=== PATIENT | female | born 1945 | race Caucasian/White ===

== ENCOUNTER → 2017-09-23 | Outpatient (CLI) | payer MEDICARE, OTHER ==
[~2017-09-23] MED LIST: ALBU90OI6 INH; ASPI325EC PO; CAL MAG D PO; CALCAVITD PO; CLARITIN-D 121 EACH PO; ETOD400 PO; ETOD500 PO; EZET10 PO; FISH1000 PO; FLAX PO; FLUO20 PO; HYDCHL12.5 PO; HYDCHL25 PO; IRON PO; LORA10ER PO; METO25ER PO; Prozac20 MG PO; Super B Comple150 MG PO; TRIA55OI; TURMERIC PO; VITAMIN B COMPLEX PO; [UNRECOGNIZED DRUG - OTHER] PO
== END ==
LOC: LAB SHORT 18:00
DX: R30.0 Dysuria (principal)
CPT/HCPCS: 87077; 87086; 87186

== ENCOUNTER 2018-02-22 06:05 | Day surgery (SDC) | payer MEDICARE, OTHER ==
[~2018-02-22] VITALS: Ht 160 cm; Wt 94.4 kg
[~2018-02-22 06:05] MED LIST changes: -CLARITIN-D 121 EACH PO
[2018-02-22] MEDS ORDERED: CLARITIN-D 121 EACH PO (07:37)
== END 2018-02-22 09:01 | disposition home or self-care (01) ==
LOC: ORSCSDS 06:05
PROVIDERS: Ophthalmology
PROC: 08RK3JZ Replacement of Left Lens with Synthetic Substitute, Percutaneous Approach (ICD-10-PCS; principal; 2018-02-22 08:30)
DX: H25.12 Age-related nuclear cataract, left eye (principal); I10 Essential (primary) hypertension; Z79.899 Other long term (current) drug therapy
CPT/HCPCS: J2250; J3301; J7120; V2632

== ENCOUNTER → 2018-03-22 | Outpatient (CLI) | payer MEDICARE, OTHER ==
[~2018-03-22] MED LIST changes: +CLARITIN-D 121 EACH PO
[2018-03-23 14:29] LABS: Source, Urine Clean Catch
[2018-03-23 16:41] LABS: Appearance, Urine Hazy (Clear); Blood, Urine Neg (Neg); Color, Urine Yellow (P-Yellow); Glucose Qualitative, Urine Neg (Neg); Ketones, Urine Neg (Neg); Leukocyte Esterase, Urine 3+ (Neg); Nitrite, Urine Pos (Neg); Protein, Urine Neg (Neg); Urobilinogen, Urine NORM (Normal); pH, Urine 6.5 (5.0-8.0)
[2018-03-23 16:53] LABS: Bilirubin, Urine 1+ (Neg)
[2018-03-23 16:54] LABS: Bacteria Mod /hpf; Red Blood Cells, Urine 0-2 /hpf (0-2); Squamous Epithelial Cells Rare /hpf (Few); White Blood Cells, Urine 25-50 /hpf (0-5)
== END ==
LOC: LAB SHORT 19:49 → LAB 19:49
PROVIDERS: Nurse Practitioner Family
DX: N39.0 Urinary tract infection, site not specified (principal); R35.0 Frequency of micturition
CPT/HCPCS: 81001

== ENCOUNTER 2018-10-05 05:52 | Day surgery (SDC) | payer MEDICARE, OTHER ==
[~2018-10-05] VITALS: Ht 160 cm; Wt 93.9 kg
[~2018-10-05 05:52] MED LIST changes: +FISH, FLAX, BORAGE PO; +IRON150C PO
--- NOTE | 2018-10-05 06:51 | NUR ---
Ambulatory in Day Surgery History, Chart, Medications and Allergies reviewed before start of procedure. Lungs clear T/O to Auscultation. Patient confirms NPO status and agrees with scheduled surgery. Pre-Op teaching done. Pt verbalizes understanding.
--- NOTE | 2018-10-05 14:20 | NUR ---
OTHER PUNEET QIU GIVEN REPORT AND IS ASSUMING CARE OF PT AT THIS TIME.
--- NOTE | 2018-10-05 15:35 | NUR ---
THIS RN GIVEN UPDATE ON PT AND IS ASSUMING CARE OF PT AT THIS TIME.
--- NOTE | 2018-10-05 18:01 | NUR ---
SHIFT SUMMARY PT EATING AND DRINKING. PT VOIDING. PT HAD PROCEDURE TODAY. UP TO CHAIR. VSS. PT USING CALL LIGHT APPR. TEDS/PAS/POLAR PAC IN PLACE. BEEN ASSISTED WITH ADL'S PRN.
[2018-10-06 04:47] LABS: BASOPHILS ABSOLUTE AUTO 0.03 K/mm3 (0.00-0.23); BASOPHILS PERCENT AUTO 0 % (0-2); EOSINOPHILS ABSOLUTE AUTO 0.03 K/mm3 (0.00-0.68); EOSINOPHILS PERCENT AUTO 0 % (0-6); Hematocrit 35.2 % (33.0-51.0); Hemoglobin 11.7 g/dL (11.5-16.0); IMMATURE GRAN ABSOLUTE AUTO 0.09 K/mm3 (0.00-0.10); IMMATURE GRAN PERCENT AUTO 1 % (0-1); LYMPHOCYTES ABSOLUTE AUTO 1.64 K/mm3 (0.84-5.20); LYMPHOCYTES PERCENT AUTO 9 % (21-46); MONOCYTES ABSOLUTE AUTO 1.92 K/mm3 (0.16-1.47); MONOCYTES PERCENT AUTO 11 % (4-13); Mean Corpuscular HGB 29.2 pg (26.0-34.0); Mean Corpuscular HGB Conc 33.2 g/dL (31.5-36.5); Mean Corpuscular Volume 88 fL (80-100); Mean Platelet Volume 9.4 fL (9.1-12.4); NEUTROPHILS PERCENT AUTO 79 % (41-73); Platelet Count 218 K/mm3 (150-400); RDW Coefficient Variation 12.4 % (11.7-14.2); RDW Standard Deviation 39.8 fL (35.1-46.3); Red Blood Cell Count 4.01 M/mm3 (3.80-5.20); White Blood Cell Count 18.01 K/mm3 (4.00-11.30)
[2018-10-06 05:06] LABS: Anion Gap 8 mmol/L (6-16); Blood Urea Nitrogen 19 mg/dL (8-24); Bun/Creatinine Ratio 22.8 (12.0-20.0); CO2, Blood 27 mmol/L (21-32); Calcium, Blood 8.6 mg/dL (8.5-10.1); Chloride, Blood 105 mmol/L (98-108); Creatinine, Blood 0.83 mg/dL (0.40-1.00); Glomerular Filtration Rate >60 (60-); Glucose, Blood 112 mg/dL (70-99); Sodium, Blood 140 mmol/L (136-145)
--- NOTE | 2018-10-06 08:28 | NUR ---
SHIFT SUMMARY: PT HAS DONE WELL THIS SHIFT. PAIN MANAGED WITH OXY PER EMAR. AMBULATING AND OOB SEVERAL TIMES W/FWW AND GAITBELT. ROSENDO DIET. DENIES N/V. DRINKING PO FLUIDS AND VOIDING WELL. SALINE LOCKED. SCDS AND ALEXANDER HOSE IN PLACE. POLAR PACK ON. NO CONCERNS AT THIS TIME.
[2018-10-06] MEDS ORDERED: ASPI325EC PO (13:32)
[2018-10-06] MEDS ORDERED: Percocet 5-3251 EACH PO (13:33)
--- NOTE | 2018-10-06 14:00 | NUR ---
PATIENT D/C'D AT THIS TIME WITH DAUGHTER. PATIENT STATES UNDERSTANDING OF MEDS, WOUND CARE, ACTIVITY, OP PT, ETC. PATIENT STATES PO PAIN MED CONTROLLING PAIN. TOLERATING PO. VOIDING. R KNEE DRESSING C,D,I. NO C/O AT THIS TIME.
--- NOTE | 2018-10-06 14:00 | NUR ---
PATIENT D/C'D OWN IV, SITE CLEAR.
== END 2018-10-06 14:05 | disposition home or self-care (01) ==
LOC: ORSCMMR 05:52 → ORD 07:30 → ORSCMMR 07:30 → SURS 10:50 → ORSCMMR 10-06 14:05
PROVIDERS: Orthopaedic Surgery
PROC: 0SRC0JA Replacement of Right Knee Joint with Synthetic Substitute, Uncemented, Open Approach (ICD-10-PCS; principal; 2018-10-05 07:30)
DX: M17.11 Unilateral primary osteoarthritis, right knee (principal); I10 Essential (primary) hypertension; J45.909 Unspecified asthma, uncomplicated; E66.01 Morbid (severe) obesity due to excess calories; Z68.36 Body mass index [BMI] 36.0-36.9, adult; Z79.899 Other long term (current) drug therapy
CPT/HCPCS: 36415; 73560-RT; 80048; 85025; 86850; 86900; 86901; 88300; 97110; 97116; 97161; 97530; C1776; J0171; J0690; J0735; J1100; J1885; J2250; J2370; J2405; J2795; J3010; J7120

== ENCOUNTER 2019-01-21 19:33 | Emergency (ER) | payer MEDICARE, OTHER ==
[~2019-01-21] VITALS: Ht 162.6 cm; Wt 76.2 kg
[~2019-01-21 19:33] MED LIST changes: -CAL MAG D PO; +CAL MAG ZINC +1 EACH PO; -ETOD400 PO; +Ferrous Sulfat325 M2 PO; -IRON PO; +Percocet 5-3251 EACH PO
[2019-01-21 20:10] LABS: BASOPHILS ABSOLUTE AUTO 0.04 K/mm3 (0.00-0.23); BASOPHILS PERCENT AUTO 0 % (0-2); EOSINOPHILS ABSOLUTE AUTO 0.27 K/mm3 (0.00-0.68); EOSINOPHILS PERCENT AUTO 3 % (0-6); Hematocrit 41.1 % (33.0-51.0); Hemoglobin 13.7 g/dL (11.5-16.0); IMMATURE GRAN ABSOLUTE AUTO 0.02 K/mm3 (0.00-0.10); IMMATURE GRAN PERCENT AUTO 0 % (0-1); LYMPHOCYTES ABSOLUTE AUTO 1.42 K/mm3 (0.84-5.20); LYMPHOCYTES PERCENT AUTO 15 % (21-46); MONOCYTES ABSOLUTE AUTO 0.65 K/mm3 (0.16-1.47); MONOCYTES PERCENT AUTO 7 % (4-13); Mean Corpuscular HGB Conc 33.3 g/dL (31.5-36.5); Mean Corpuscular Volume 87 fL (80-100); Mean Platelet Volume 9.2 fL (9.1-12.4); NEUTROPHILS ABSOLUTE AUTO 7.16 K/mm3 (1.96-9.15); NEUTROPHILS PERCENT AUTO 75 % (41-73); Platelet Count 313 K/mm3 (150-400); RDW Coefficient Variation 12.6 % (11.7-14.2); RDW Standard Deviation 40.3 fL (35.1-46.3); Red Blood Cell Count 4.72 M/mm3 (3.80-5.20); White Blood Cell Count 9.56 K/mm3 (4.00-11.30)
[2019-01-21 20:27] LABS: Alanine Aminotransfer (ALT/SGP 20 U/L (12-78); Albumin, Blood 3.4 g/dL (3.4-5.0); Albumin/Globulin Ratio 0.9 (0.8-1.8); Alk Phos 118 U/L (50-136); Anion Gap 4 mmol/L (6-16); Aspartate Aminotrans (AST/SGOT 16 U/L (12-37); Bilirubin, Total 0.4 mg/dL (0.1-1.0); Blood Urea Nitrogen 17 mg/dL (8-24); Bun/Creatinine Ratio 23.3 (12.0-20.0); CO2, Blood 30 mmol/L (21-32); Calcium, Blood 8.8 mg/dL (8.5-10.1); Chloride, Blood 105 mmol/L (98-108); Creatinine, Blood 0.73 mg/dL (0.40-1.00); Globulin, Blood 3.7 g/dL (2.2-4.0); Glomerular Filtration Rate >60 (60-); Glucose, Blood 129 mg/dL (70-99); Potassium, Blood 3.2 mmol/L (3.5-5.5); Sodium, Blood 139 mmol/L (136-145); Total Protein, Blood 7.1 g/dL (6.4-8.2); Troponin I <0.015 ng/mL (0.000-0.040)
[2019-01-21] MEDS ORDERED: Omeprazole20 M1 PO (21:57)
== END 2019-01-21 22:26 | disposition home or self-care (01) ==
LOC: ER 19:33
PROVIDERS: Physician Assistant
DX: K29.70 Gastritis, unspecified, without bleeding (principal); K21.9 Gastro-esophageal reflux disease without esophagitis; Z79.899 Other long term (current) drug therapy; I10 Essential (primary) hypertension; E78.00 Pure hypercholesterolemia, unspecified
CPT/HCPCS: 36415; 71046; 80053; 83690; 84484; 85025; 93005; 93010; 96361; 96374; 96375; 99284-25; A9270; C9113; J2405; J7030

== ENCOUNTER 2019-05-29 16:13 | Inpatient (IN) | payer MEDICARE, OTHER ==
[~2019-05-29] VITALS: Ht 160 cm; Wt 86.5 kg
[~2019-05-29 16:13] MED LIST changes: +Omeprazole20 M1 PO
[2019-05-31] MEDS ORDERED: LORATADINE D PO (10:57)
[2019-05-31] MEDS ORDERED: ALBU90OI INH (11:00)
--- NOTE | 2019-05-31 11:13 | NUR ---
PT ADMITTED TO [facility]. AGREES WITH PLANNED SURGERYL. LUNG SOUNDS CLEAR.
--- NOTE | 2019-05-31 11:36 | NUR ---
PT UP TO BATHROOM TO VOID. REPORT GIVEN TO SUSIE HAMILTON RN.
--- NOTE | 2019-05-31 15:03 | NUR ---
INTO PACU VSS RECIEVED REPORT. PATIENT ENCOURAGED TO DB AND PLACED ON FACE TENT. DRESSING CDI PATIENT FALLS ASLEEP AFTER TALKING WITH RN.
--- NOTE | 2019-05-31 15:33 | NUR ---
CALL TO SURGICAL FLOOR RN TO CALL AFTER GETTING REPORT FROM YUKO BOOKER TO GET REPORT ON THIS PATIENT. PATIENT CHANGED TO STEP STATUS AT THIS TIME
--- NOTE | 2019-05-31 17:54 | NUR ---
SHIFT SUMMARY: DALLIN HAD AN ELECTIVE RIGHT SHOULDER ARTHROPLASTY. SHE IS A&O X4. SHE IS TOLERATING PO INTAKE WELL. SHE HAD A BLOCK AND DENIES PAIN AT THIS TIME, SENSATION INTACT TO LIGHT TOUCH. LYING IN BED WITH CALL LIGHT IN REACH. SHE HAS THE HX OF ASTHMA, REACTIVE AIRWAY DISEASE, BRONCHITIS, HTN, HYPERGLYCEMIA, ANEMIA, AND CHRONIC DEPRESSION. SHE DID HAVE A PROPHYLACTIC BILATERAL MASTECTOMY DUE TO FAMILY HISTORY. UPPER DENTURES IN CUP NEXT TO SINK IN ROOM. O2 AT 2 L VIA NC DUE TO DESATURATION TO 89% WHILE SLEEPING. EBL 400 DURING SURGERY. VSS.
[2019-06-01 04:24] LABS: BASOPHILS ABSOLUTE AUTO 0.02 K/mm3 (0.00-0.23); BASOPHILS PERCENT AUTO 0 % (0-2); EOSINOPHILS PERCENT AUTO 0 % (0-6); Hematocrit 33.7 % (33.0-51.0); Hemoglobin 11.2 g/dL (11.5-16.0); IMMATURE GRAN ABSOLUTE AUTO 0.05 K/mm3 (0.00-0.10); IMMATURE GRAN PERCENT AUTO 0 % (0-1); LYMPHOCYTES ABSOLUTE AUTO 1.12 K/mm3 (0.84-5.20); LYMPHOCYTES PERCENT AUTO 7 % (21-46); MONOCYTES ABSOLUTE AUTO 0.93 K/mm3 (0.16-1.47); MONOCYTES PERCENT AUTO 6 % (4-13); Mean Corpuscular HGB 28.5 pg (26.0-34.0); Mean Corpuscular HGB Conc 33.2 g/dL (31.5-36.5); Mean Corpuscular Volume 86 fL (80-100); Mean Platelet Volume 9.5 fL (9.1-12.4); NEUTROPHILS ABSOLUTE AUTO 14.08 K/mm3 (1.96-9.15); NEUTROPHILS PERCENT AUTO 87 % (41-73); Platelet Count 242 K/mm3 (150-400); RDW Coefficient Variation 12.2 % (11.7-14.2); RDW Standard Deviation 38.5 fL (35.1-46.3); Red Blood Cell Count 3.93 M/mm3 (3.80-5.20)
[2019-06-01 04:43] LABS: Anion Gap 7 mmol/L (6-16); Blood Urea Nitrogen 17 mg/dL (8-24); Bun/Creatinine Ratio 20.1 (12.0-20.0); CO2, Blood 26 mmol/L (21-32); Calcium, Blood 8.5 mg/dL (8.5-10.1); Chloride, Blood 101 mmol/L (98-108); Creatinine, Blood 0.85 mg/dL (0.40-1.00); Glomerular Filtration Rate >60 (60-); Glucose, Blood 116 mg/dL (70-99); Potassium, Blood 4.1 mmol/L (3.5-5.5); Sodium, Blood 134 mmol/L (136-145)
--- NOTE | 2019-06-01 05:56 | NUR ---
PATIENT A/Ox4, VSS. Ambulating to bathroom. Voiding freely. Patient states "arm is still numb but is beginning to have feeling in the palm of her hand" medicated as ordered. Resting in Chair. Call light within reach
[2019-06-01] MEDS ORDERED: Percocet 5-3251 EACH PO (08:42)
[2019-06-01] MEDS ORDERED: Aspir 8181 MG PO (08:43)
--- NOTE | 2019-06-01 09:49 | NUR ---
THERAPY: pt working with pt/ot at this time. plan to dc home later this afternoon. continues to deny pain.
--- NOTE | 2019-06-01 12:55 | NUR ---
06/01/19 1255 Rhonda Penaloza VERIFICATIONS: EDIT CHART.
--- NOTE | 2019-06-01 14:39 | NUR ---
DISCHARGE: PT DC TO HOME AT THIS TIME WITH DAUGHTER. VERBALIZED UNDERSTANDING OF INSTRUCTIONS, FOLLOW UP, PROBLEMS TO REPORT AND MEDICATIONS. SCRIPTS GIVEN. PT LEFT AMBULATORY TO CAR WITH BELONGINGS.
== END 2019-06-01 14:24 | disposition home or self-care (01) | DRG 483 ==
LOC: SURS 05-31 10:35 → PRE IP 05-31 11:45 → SURS 05-31 16:20
PROVIDERS: ADMIT Orthopaedic Surgery
PROC: 0RRJ0JZ Replacement of Right Shoulder Joint with Synthetic Substitute, Open Approach (ICD-10-PCS; principal; 2019-05-31 11:45)
DX: M19.011 Primary osteoarthritis, right shoulder (principal); F32.9 Major depressive disorder, single episode, unspecified; J45.909 Unspecified asthma, uncomplicated; E78.5 Hyperlipidemia, unspecified; I10 Essential (primary) hypertension; Z79.899 Other long term (current) drug therapy
CPT/HCPCS: 36415; 73030; 80048; 85025; 86850; 86900; 86901; 88300; 97162; 97165; 97530; 97535; C1776; J0171; J0690; J0735; J1100; J1885; J2370; J2405; J2704; J2795; J3010; J7120

== ENCOUNTER 2019-11-02 10:19 | Day surgery (SDC) | payer MEDICARE, OTHER ==
[~2019-11-02] VITALS: Ht 154.9 cm; Wt 85.1 kg
[~2019-11-02 10:19] MED LIST changes: +ALBU90OI INH; +Aspir 8181 MG PO; +LORATADINE D PO
== END 2019-11-02 12:29 | disposition home or self-care (01) ==
LOC: ORSCSDS 10:19
PROVIDERS: Internal Medicine Gastroenterology
PROC: 0DJD8ZZ Inspection of Lower Intestinal Tract, Via Natural or Artificial Opening Endoscopic (ICD-10-PCS; principal; 2019-11-02 11:45)
DX: Z12.11 Encounter for screening for malignant neoplasm of colon (principal); Z86.010 Personal history of colon polyps; K57.30 Diverticulosis of large intestine without perforation or abscess without bleeding; Z80.0 Family history of malignant neoplasm of digestive organs; I10 Essential (primary) hypertension; K21.9 Gastro-esophageal reflux disease without esophagitis; G47.30 Sleep apnea, unspecified; F32.9 Major depressive disorder, single episode, unspecified; J45.909 Unspecified asthma, uncomplicated; E78.5 Hyperlipidemia, unspecified; Z87.891 Personal history of nicotine dependence; Z79.899 Other long term (current) drug therapy
CPT/HCPCS: J2704; J7120

== ENCOUNTER → 2021-04-02 | Outpatient (CLI) | payer MEDICARE, OTHER | END | disposition home or self-care (01) | LOC: LAB 12:14 → LAB SHORT 12:14 | DX: C44.712 Basal cell carcinoma of skin of right lower limb, including hip (principal); C44.719 Basal cell carcinoma of skin of left lower limb, including hip; L82.1 Other seborrheic keratosis; C44.519 Basal cell carcinoma of skin of other part of trunk | CPT/HCPCS: 88305 ==

== ENCOUNTER → 2021-05-13 | Outpatient (CLI) | payer MEDICARE, OTHER | END | disposition home or self-care (01) | LOC: LAB SHORT 14:47 | DX: C44.719 Basal cell carcinoma of skin of left lower limb, including hip (principal) | CPT/HCPCS: 88305 ==

== ENCOUNTER → 2021-06-30 | Outpatient (CLI) | payer MEDICARE, OTHER | LOC: LAB 15:07 → LAB SHORT 15:07 | DX: C44.712 Basal cell carcinoma of skin of right lower limb, including hip (principal) | CPT/HCPCS: 88305 ==

== ENCOUNTER → 2021-09-17 | Outpatient (CLI) | payer MEDICARE, OTHER | END | disposition home or self-care (01) | LOC: LAB SHORT 11:23 | DX: C44.519 Basal cell carcinoma of skin of other part of trunk (principal) | CPT/HCPCS: 88305 ==

== ENCOUNTER → 2021-09-28 | Outpatient (CLI) | payer MEDICARE, OTHER | END | disposition home or self-care (01) | LOC: LAB SHORT 12:11 | DX: C44.519 Basal cell carcinoma of skin of other part of trunk (principal) | CPT/HCPCS: 88305 ==

== ENCOUNTER → 2022-06-10 | Outpatient (CLI) | payer MEDICARE, OTHER | END | disposition home or self-care (01) | LOC: PLD 12:35 → LAB SHORT 12:35 | DX: C44.41 Basal cell carcinoma of skin of scalp and neck (principal) | CPT/HCPCS: 88305 ==

== ENCOUNTER → 2022-12-29 | Outpatient (CLI) | payer MEDICARE, OTHER | END | disposition home or self-care (01) | LOC: PLD 11:25 → LAB SHORT 11:25 | DX: C44.319 Basal cell carcinoma of skin of other parts of face (principal) | CPT/HCPCS: 88305 ==

== ENCOUNTER 2023-04-27 13:59 | Day surgery (SDC) | payer MEDICARE, OTHER ==
[~2023-04-27] VITALS: Ht 157.5 cm; Wt 97.1 kg
[2023-04-27] MEDS ORDERED: GUAI200 (14:11)
[2023-04-27 16:01] VITALS: BP 133/79
--- NOTE | 2023-04-27 16:04 | NUR ---
04/27/23 1604 Anand Son IV REMOVED INTACT. SITE WNL.
== END 2023-04-27 16:05 | disposition home or self-care (01) ==
LOC: ORSCSDS 13:59
PROVIDERS: Internal Medicine Gastroenterology
PROC: 0DBE8ZX Excision of Large Intestine, Via Natural or Artificial Opening Endoscopic, Diagnostic (ICD-10-PCS; principal; 2023-04-27 15:00)
DX: R19.4 Change in bowel habit (principal); Z86.010 Personal history of colon polyps; K57.30 Diverticulosis of large intestine without perforation or abscess without bleeding; Z79.899 Other long term (current) drug therapy
CPT/HCPCS: 88305; J0461; J2001; J2405; J2704; J7120; Q9968

== ENCOUNTER → 2023-07-29 | Outpatient (CLI) | payer MEDICARE, OTHER ==
[~2023-07-29] MED LIST changes: +ELIQUIS5 M2 PO; +GUAI200; +METO50ER PO
[2023-07-29 17:41] LABS: Adenovirus F 40/41 Not Detected (NOT DETECT); Astrovirus Not Detected (NOT DETECT); Campylobacter Sp Not Detected (NOT DETECT); Cryptosporidium Not Detected (NOT DETECT); Cyclospora Cayetanensis Not Detected (NOT DETECT); E. Coli O157 Not Detected (NOT DETECT); Entamoeba Histolytica Not Detected (NOT DETECT); Enteroaggregative E. coli-EAEC Not Detected (NOT DETECT); Enteropathogenic E. coli-EPEC Not Detected (NOT DETECT); Enterotoxigenic E. coli-ETEC Not Detected (NOT DETECT); Giardia Lamblia Not Detected (NOT DETECT); Norovirus GI/GII Not Detected (NOT DETECT); Plesiomonas Shigelloides Not Detected (NOT DETECT); Rotavirus A Not Detected (NOT DETECT); Salmonella Sp Not Detected (NOT DETECT); Sapovirus Not Detected (NOT DETECT); Shiga Toxin-prod E. coli-STEC Not Detected (NOT DETECT); Shigella/Enteroin E. coli-EIEC Not Detected (NOT DETECT); Vibrio Cholerae Not Detected (NOT DETECT); Vibrio Sp Not Detected (NOT DETECT); Yersinia Enterocolitica Not Detected (NOT DETECT)
== END | disposition home or self-care (01) ==
LOC: LAB SHORT 12:45 → LAB 12:45 → EDSTATUS 07-27 10:10 → LAB FUT 07-27 10:10
PROVIDERS: Nurse Practitioner Family
DX: K52.9 Noninfective gastroenteritis and colitis, unspecified (principal)
CPT/HCPCS: 87507

== ENCOUNTER 2023-10-02 11:23 | Emergency (ER) | payer MEDICARE, OTHER ==
[~2023-10-02] VITALS: Ht 157.5 cm; Wt 100.7 kg
[2023-10-02 12:12] LABS: BASOPHILS ABSOLUTE AUTO 0.05 K/mm3 (0.00-0.23); BASOPHILS PERCENT AUTO 1 % (0-2); EOSINOPHILS ABSOLUTE AUTO 0.23 K/mm3 (0.00-0.68); EOSINOPHILS PERCENT AUTO 3 % (0-6); Hematocrit 42.1 % (33.0-51.0); IMMATURE GRAN ABSOLUTE AUTO 0.02 K/mm3 (0.00-0.10); IMMATURE GRAN PERCENT AUTO 0 % (0-1); LYMPHOCYTES ABSOLUTE AUTO 1.89 K/mm3 (0.84-5.20); LYMPHOCYTES PERCENT AUTO 26 % (21-46); MONOCYTES ABSOLUTE AUTO 0.66 K/mm3 (0.16-1.47); MONOCYTES PERCENT AUTO 9 % (4-13); Mean Corpuscular HGB 28.8 pg (26.0-34.0); Mean Corpuscular HGB Conc 33.3 g/dL (31.5-36.5); Mean Corpuscular Volume 87 fL (80-100); NEUTROPHILS ABSOLUTE AUTO 4.37 K/mm3 (1.96-9.15); NEUTROPHILS PERCENT AUTO 61 % (41-73); Platelet Count 293 K/mm3 (150-400); RDW Coefficient Variation 12.3 % (11.7-14.2); RDW Standard Deviation 39.3 fL (35.1-46.3); Red Blood Cell Count 4.86 M/mm3 (3.80-5.20); White Blood Cell Count 7.22 K/mm3 (4.00-11.30)
[2023-10-02 12:39] LABS: Albumin, Blood 3.5 g/dL (3.4-5.0); Albumin/Globulin Ratio 0.9 (0.8-1.8); Bilirubin, Total 0.3 mg/dL (0.1-1.0); Bun/Creatinine Ratio 22.8 (12.0-20.0); Calcium, Blood 9.3 mg/dL (8.5-10.1); Creatinine, Blood 0.75 mg/dL (0.40-1.00); Globulin, Blood 3.8 g/dL (2.2-4.0); Total Protein, Blood 7.3 g/dL (6.4-8.2)
[2023-10-02 14:47] LABS: Magnesium, Blood 1.9 mg/dL (1.6-2.4); Thyroid Stimulating Hormone 1.49 uIU/mL (0.360-4.800)
[2023-10-02] MEDS ORDERED: Prozac20 MG PO (15:04)
[2023-10-02 16:31] VITALS: BP 171/85
== END 2023-10-02 16:40 | disposition home or self-care (01) ==
LOC: ER 11:23
PROVIDERS: Student in an Organized Health Care Education/Training Program
DX: R42 Dizziness and giddiness (principal); I10 Essential (primary) hypertension; E78.00 Pure hypercholesterolemia, unspecified; Z79.01 Long term (current) use of anticoagulants; Z79.899 Other long term (current) drug therapy; Z88.8 Allergy status to other drugs, medicaments and biological substances
CPT/HCPCS: 71046; 80053; 83735; 84443; 84484; 85025; 99284-25

== ENCOUNTER → 2024-03-24 | Outpatient (CLI) | payer MEDICARE, OTHER | END | disposition home or self-care (01) | LOC: LAB SHORT 10:23 | DX: R30.0 Dysuria (principal); R31.0 Gross hematuria | CPT/HCPCS: 87077; 87086; 87186 ==

== ENCOUNTER → 2024-04-25 | Outpatient (CLI) | payer MEDICARE, OTHER | LOC: LAB SHORT 17:07 → LAB 17:07 | DX: N39.0 Urinary tract infection, site not specified (principal) | CPT/HCPCS: 87077; 87086; 87186 ==

== ENCOUNTER → 2025-03-27 | Outpatient (CLI) | payer MEDICARE, OTHER ==
[2025-03-27 16:45] LABS: BASOPHILS ABSOLUTE AUTO 0.05 K/mm3 (0.00-0.23); BASOPHILS PERCENT AUTO 1 % (0-2); EOSINOPHILS ABSOLUTE AUTO 0.27 K/mm3 (0.00-0.68); EOSINOPHILS PERCENT AUTO 4 % (0-6); Hematocrit 41.5 % (33.0-51.0); Hemoglobin 13.6 g/dL (11.5-16.0); IMMATURE GRAN ABSOLUTE AUTO 0.02 K/mm3 (0.00-0.10); IMMATURE GRAN PERCENT AUTO 0 % (0-1); LYMPHOCYTES ABSOLUTE AUTO 1.46 K/mm3 (0.84-5.20); LYMPHOCYTES PERCENT AUTO 20 % (21-46); MONOCYTES ABSOLUTE AUTO 0.62 K/mm3 (0.16-1.47); MONOCYTES PERCENT AUTO 8 % (4-13); Mean Corpuscular HGB Conc 32.8 g/dL (31.5-36.5); Mean Corpuscular Volume 89 fL (80-100); NEUTROPHILS ABSOLUTE AUTO 5.02 K/mm3 (1.96-9.15); NEUTROPHILS PERCENT AUTO 68 % (41-73); NRBC ABSOLUTE 0.00 K/mm3 (0.00-0.02); NRBC Auto 0.0 /100 WBC (0.0-0.2); Platelet Count 244 K/mm3 (150-400); RDW Coefficient Variation 12.5 % (11.7-14.2); RDW Standard Deviation 40.0 fL (35.1-46.3)
[2025-03-27 18:59] LABS: Alanine Aminotransfer (ALT/SGP 18 U/L (12-78); Albumin, Blood 3.2 g/dL (3.4-5.0); Albumin/Globulin Ratio 0.9 (0.8-1.8); Anion Gap 8 mmol/L (3-11); Aspartate Aminotrans (AST/SGOT 12 U/L (12-37); Bilirubin, Total 0.4 mg/dL (0.1-1.0); Blood Urea Nitrogen 17 mg/dL (8-24); CHOL/HDL RATIO 3.6; CO2, Blood 28 mmol/L (21-32); Calcium, Blood 8.8 mg/dL (8.5-10.1); Chloride, Blood 107 mmol/L (98-108); Cholesterol 186 mg/dL (50-200); Creatinine, Blood 0.62 mg/dL (0.40-1.00); Globulin, Blood 3.6 g/dL (2.2-4.0); Glucose, Blood 78 mg/dL (70-99); HDL Cholesterol 52 mg/dL (>39); LDL/HDL RATIO 1.9; Low Density Lipoprotein Chol 98 mg/dL (0-110); Potassium, Blood 4.2 mmol/L (3.5-5.5); Sodium, Blood 139 mmol/L (136-145); Total Protein, Blood 6.8 g/dL (6.4-8.2); Triglycerides 182 mg/dL (30-160); Very Low Density Lipoprot Chol 36 mg/dL (6-32)
== END | disposition home or self-care (01) ==
LOC: LAB 15:37 → LAB SHORT 15:37
PROVIDERS: Nurse Practitioner Family
DX: I10 Essential (primary) hypertension (principal); E89.2 Postprocedural hypoparathyroidism; E78.5 Hyperlipidemia, unspecified
CPT/HCPCS: 80053; 80061; 83970; 85025

== ENCOUNTER → 2025-04-30 | Outpatient (CLI) | payer MEDICARE, OTHER | END | disposition home or self-care (01) | LOC: LAB SHORT 17:32 → LAB 17:32 | DX: N39.0 Urinary tract infection, site not specified (principal) | CPT/HCPCS: 87077; 87086; 87186 ==

== ENCOUNTER 2025-08-05 06:10 | Day surgery (SDC) | payer MEDICARE, OTHER ==
[2025-08-05] MEDS ORDERED: LOSA50 PO (06:33)
[2025-08-05 06:45] VITALS: BP 147/90
[2025-08-05] MEDS ORDERED: NS 1,000 ML IV ONE (06:51)
[2025-08-05 07:15] VITALS: BP 90/45
--- NOTE | 2025-08-05 07:15 | NUR ---
ASSUMED CARE FROM ANESTHESIA. PT AWAKE AND VERBALIZING WELL. SB 45-50 BPM POST CARDIOVERSION.
[2025-08-05] MEDS ORDERED: Tambocor100 MG PO (07:24)
[2025-08-05 07:30] VITALS: BP 101/67
[2025-08-05 07:45] VITALS: BP 106/64
--- NOTE | 2025-08-05 07:47 | NUR ---
PT VERBALIZED UNDERSTANDING OF WRITTEN AND VERBAL D/C INST. SB 45-50 BPM ON D/C. PT TAKEN OUT OF THE [facility]ENTER VIA W/C. IV REMOVED.
== END 2025-08-05 23:00 | disposition home or self-care (01) ==
LOC: MHTC 06:10 → ORD 07:00 → ORSCMMR 07:00 → MHTC 23:00
DX: I48.0 Paroxysmal atrial fibrillation (principal); E78.5 Hyperlipidemia, unspecified; I10 Essential (primary) hypertension; Z88.8 Allergy status to other drugs, medicaments and biological substances; Z79.01 Long term (current) use of anticoagulants; Z79.899 Other long term (current) drug therapy
CPT/HCPCS: 92960; 93005; 93010; J7030